=== PATIENT | male | born 1995 | race Caucasian/White ===

== ENCOUNTER 2022-04-06 09:57 | Emergency (ER) | payer OTHER ==
--- NOTE | 2022-04-06 10:54 | ED Physician Documentation ---
PD HPI HEADACHE - Stated complaint Stated Complaint: L SIDE NUMBNESS/VISION CHANGE - Chief complaint Chief Complaint: Neuro - History obtained from History obtained from: Patient - History of Present Illness Timing - onset: Today (about an hour ago) Timing - onset during: Rest, Light activity (just getting ready for work day and had onset of right eye scotomata and wavy lines, then developed some feeling of tingling in left arm. These lasted about 10-15 minutes and then lessened and he started with right sided headache. Has had similar in the past, but only once had the arm numbness too.) Timing - details: Gradual onset, Still present Worst headache ever?: No: Worst headache ever? Location: Right (headache is similar to ones he gets about every 2-3 months. Presumed migraines and has had visual symptoms preceding typically. Only once before with the arm numbness preceding too. PCP had told him to get eval in ER if has the arm numbness again (Not sure why that distinction per se).) Quality: Throbbing, Aching Associated symptoms: Numbness, Vision changes. No: Fever, Stiff neck, Nausea, Vomiting, Weakness Improved by: Dark room Worsened by: Light Contributing factors: No: Recent illness, Trauma Similar symptoms before: No diagnosis (presumed migraines in the past. No formal disagnosis.) Recently seen: Not recently seen Review of Systems Constitutional: denies: Fever, Chills Eyes: reports: Decreased vision (wavy lines and lights laterally right eye.). denies: Loss of vision Nose: denies: Rhinorrhea / runny nose, Congestion Throat: denies: Sore throat Respiratory: denies: Cough GI: denies: Nausea, Vomiting, Diarrhea Neurologic: reports: Headache. denies: Confused, Altered mental status, Head injury, LOC PD PAST MEDICAL HISTORY - Past Medical History Past Medical History: Yes Cardiovascular: None Respiratory: None Neuro: Headaches Endocrine/Autoimmune: None GI: None : None HEENT: None Psych: None Musculoskeletal: None Derm: None - Past Surgical History Past Surgical History: Yes - Present Medications Home Medications: Ambulatory Orders Medication Instructions Recorded Confirmed No Known Home Medications 04/06/22 04/06/22 - Allergies Allergies/Adverse Reactions: Allergies Allergy/AdvReac Type Severity Reaction Status Date / Time No Known Drug Allergies Allergy Verified 04/06/22 10:08 - Social History Does the pt smoke?: No Smoking Status: Never smoker Does the pt drink ETOH?: Yes Does the pt have substance abuse?: No - Immunizations Immunizations are current?: Yes PD ED PE NORMAL - Vitals Vital signs reviewed: Yes - General General: Alert and oriented X 3, No acute distress, Well developed/nourished - HEENT HEENT: Atraumatic, PERRL, EOMI, Ears normal, Pharynx benign - Neck Neck: Supple, no meningeal sign, No adenopathy - Derm Derm: Normal color, Warm and dry - Neuro Neuro: Alert and oriented X 3, 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 Discussed with patient that I did not see need for urgent imaging. To follow up with PCP and perhaps neuro consult/MRI as part of headache eval.), d/w patient ED course: Could empirically treat with migraine meds. Infrequent HAs about every 2-3 months. 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 I suggested just follow up with PCP about meds/potential neuro consult and about flight status given the visual changes prior to the headaches. Departure - Departure Disposition: 01 Home, Self Care Clinical Impression: Visual changes, Left arm numbness, Complicated migraine Condition: Stable Record reviewed to determine appropriate education?: Yes Instructions: ED Headache Migraine Comments: Your symptoms sound very much like a complicated migraine which will include visual changes and some neurologic symptoms preceding the headache. Follow-up with your primary care for any further evaluation. Potentially there are medications you can be prescribed to take early on in the migraine course to avert the symptoms sooner. There are potential antimigraine medications he can take daily to try to reduce or eliminate them. Some testing that can be done in evaluating headaches in general could be some basic blood test but also imaging would be MRI. This would be nonemergent and is not necessarily done in all cases of headaches that sound very much like migraine. Tylenol ibuprofen if needed for headache. Forms: Activity restrictions Discharge Date/Time: 04/06/22 12:10
[2022-04-06 11:58] VITALS: BP 136/74
== END 2022-04-06 12:10 | disposition home or self-care (01) ==
LOC: ED 09:57
DX: G43.109 Migraine with aura, not intractable, without status migrainosus (principal)
CPT/HCPCS: 99281; 99284

== ENCOUNTER 2022-06-02 09:47 | Outpatient (CLI) | payer OTHER ==
[2022-06-02] MEDS ORDERED: GADOBUTROL 7.5 MMOL/7.5 ML VIAL ONE (09:51)
[2022-06-02] MEDS ORDERED: GADOBUTROL 7.5 MMOL/7.5 ML VIAL IVP ONE (10:34)
--- NOTE | 2022-06-02 16:20 | MRI Report ---
PROCEDURE: BRAIN W/WO INDICATIONS: OPHTHALMOPLEGIC MIGRAINE CONTRAST: 6.8ml gadavist TECHNIQUE: Noncontrast axial T1 spin echo, axial T2 fast spin echo, sagittal and axial FLAIR, coronal T2 fast sp in echo, axial gradient echo, axial diffusion and ADC through the brain. After the administration of contrast, axial and coronal T1 spin echo with fat saturation through the brain. COMPARISON: None. FINDINGS: Image quality: Excellent. CSF spaces: Basal cisterns are patent. No extra-axial fluid collections. Ventricles are normal in size and shape. Brain: Approximately 4 mm pineal cyst. Midline structures otherwise normal. No brain parenchymal sign al abnormality. No findings of mass effect or midline shift. Skull and face: Calvarial marrow is normal in signal. Orbits appear normal. Sinuses: Sinuses and mastoids appear clear. 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 Otherwise unremarkable MRI brain. Reviewed by: Jose Beard MD on 06/02/2022 4:19 PM PST Approved by: Jose Beard MD on 06/02/2022 4:19 PM PST Station ID: [id number]
== END 2022-06-02 09:48 | disposition home or self-care (01) ==
LOC: DI 09:47
PROVIDERS: ATTEND Student in an Organized Health Care Education/Training Program
DX: G43.B0 Ophthalmoplegic migraine, not intractable (principal); E34.8 Other specified endocrine disorders
CPT/HCPCS: 70553; A9585